=== PATIENT | female | born 1945 | race Caucasian/White ===

== ENCOUNTER 2025-05-22 07:30 | Day surgery (SDC) | payer OTHER, BC ==
[2025-05-19 17:57] VITALS: BMI 30.2
[2025-05-22] MEDS ORDERED: ACETAMINOPHEN 500 MG TABLET (FP) PO PRN (08:31)
[2025-05-22] MEDS ORDERED: LIDOCAINE HCL/PF 1% SDV 5ML VIAL ONE (10:53)
[2025-05-22 12:46] VITALS: RESP 16
[2025-05-22] MEDS: LIDOCAINE HCL 1% PRESERVATIVE FREE - 30ML VIAL IJ ONE ×2 (13:43)
[2025-05-22 14:20] VITALS: TEMP 97.7
[2025-05-22 15:16] VITALS: BP 139/66; PULSE 62
== END 2025-05-22 15:10 | disposition home or self-care (01) ==
LOC: JASU-SURG 07:30
PROVIDERS: ATTEND Pain Medicine Pain Medicine
PROC: 01HY3MZ Insertion of Neurostimulator Lead into Peripheral Nerve, Percutaneous Approach (ICD-10-PCS; principal; 2025-05-22 13:15)
DX: G89.4 Chronic pain syndrome (principal)
CPT/HCPCS: 64555; C1778; 82962